=== PATIENT | female | born 1950 ===

== ENCOUNTER 2023-05-22 10:00 | Outpatient (RCR) | payer MEDICARE, BC | END 2023-05-23 | disposition home or self-care (01) | LOC: MKS.ESL.PT | DX: G20.A1 Parkinson's disease without dyskinesia, without mention of fluctuations (principal); G24.9 Dystonia, unspecified ==

== ENCOUNTER 2024-01-17 10:30 | Outpatient (RCR) | payer MEDICARE, BC | END 2024-01-21 | disposition still patient (30) | LOC: MKS.ESL.PT | DX: M79.18 Myalgia, other site (principal) ==

== ENCOUNTER → 2024-02-21 | Outpatient (RCR) | payer MEDICARE, BC | END | disposition home or self-care (01) | LOC: MKS.ESL.PT | DX: M79.18 Myalgia, other site (principal) ==

== ENCOUNTER 2024-03-13 13:38 | Outpatient (RCR) | payer MEDICARE, BC | END 2024-03-22 | disposition home or self-care (01) | LOC: MKS.ESL.PT | DX: M79.18 Myalgia, other site (principal) ==